=== PATIENT | male | born 1965 | race Caucasian/White ===

== ENCOUNTER → 2022-04-05 | Outpatient (CLI) | payer BC | LOC: M RAD 06:41 | PROVIDERS: ATTEND Registered Nurse | DX: Z12.2 Encounter for screening for malignant neoplasm of respiratory organs (principal); F17.200 Nicotine dependence, unspecified, uncomplicated ==

== ENCOUNTER 2023-07-26 00:33 | Inpatient (IN) | payer BC ==
[2023-07-26] VITALS (29 sets, daily range): BP systolic 102–152; BP diastolic 57–90; TEMP 97.3–97.9; O2SAT 94–98
[~2023-07-26] VITALS: Ht 193 cm; Wt 176.8 kg
[2023-07-26] MEDS ORDERED: methylPREDNISolone 125MG 2ML VIAL IV ONE (00:50)
[2023-07-26] MEDS ORDERED: NS 1,000 ML IV ONE (00:55)
[2023-07-26 01:10] LABS: ABG BASE EXCESS -2.5 (-2.0-2.0); ABG PARTIAL PRESSURE CO2 37.4 mmHg (35.0-45.0); ABG PARTIAL PRESSURE O2 195.5 mmHg (75.0-100.0); ABG STANDARD HCO3 22.4 MMOL/L. (22.0-26.0); ABG TOTAL CO2 23.1 MMOL/L (22.0-29.0); ABG pH (ARTERIAL) 7.387 UNITS (7.350-7.450)
[2023-07-26 01:17] LABS: BASO # 0.1 10^3/uL (0.0-0.2); BASO % 0.5 % (0.0-1.0); HEMATOCRIT 44.1 % (42.0-52.0); HEMOGLOBIN 15.6 g/dl (13.5-17.5); LYMPH # 1.8 10^3/uL (1.5-5.0); LYMPH % 7.1 % (24.0-44.0); MEAN CORPUSCULAR HEMOGLOBIN 32.8 pg (27.0-33.0); MEAN CORPUSCULAR HGB CONC 35.4 g/dl (32.0-36.5); MEAN CORPUSCULAR VOLUME 92.6 fl (80.0-96.0); MONO % 9.5 % (2.0-8.0); NEUTROPHILS # 21.2 10^3/uL (1.5-8.5); PLATELET COUNT, AUTOMATED 211 10^3/uL (150-450); RED BLOOD COUNT 4.76 10^6/uL (4.30-6.10); WHITE BLOOD COUNT 25.9 10^3/uL (4.0-10.0)
[2023-07-26] MEDS ORDERED: PRIL20TA2 PO (01:17)
[2023-07-26] MEDS ORDERED: SPIR-10 PO (01:19)
[2023-07-26] MEDS ORDERED: LEVO150T7 PO (01:19)
[2023-07-26] MEDS ORDERED: ECOT81TA5 PO (01:19)
[2023-07-26] MEDS ORDERED: FURO20TA2 PO (01:19)
[2023-07-26] MEDS ORDERED: ATOR40TA75 PO (01:19)
[2023-07-26 01:40] LABS: ALKALINE PHOSPHATASE 107 U/L (46-116); ALT/SGPT 24 U/L (7.0-40); AST/SGOT 25 U/L (<34); BILIRUBIN,DIRECT 0.5 MG/DL (<0.4); BILIRUBIN,TOTAL 0.9 MG/DL (0.3-1.2); BLOOD UREA NITROGEN 16 MG/DL (9-23); CALCIUM LEVEL 7.3 MG/DL (8.5-10.1); CARBON DIOXIDE LEVEL 24 MMOL/L (20-31); CHLORIDE LEVEL 103 MMOL/L (98-107); CK-MB VALUE MASS 2.3 NG/ML (<3.6); CPK CREATINE PHOSPHOKINASE 390 U/L (46-171); GLOMERULAR FILTRATION RATE > 60.0 (>56); GLUCOSE, FASTING 134 MG/DL (60-100); MB/CK RELATIVE INDEX 0.58 (< OR =4); POTASSIUM SERUM 3.1 MMOL/L (3.5-5.1); SODIUM LEVEL 134 MMOL/L (136-145); TOTAL PROTEIN 7.6 G/DL (5.7-8.2)
[2023-07-26] MEDS ORDERED: ISOVUE-370 76% 100ML VIAL As Ordered ONE (01:57)
[2023-07-26 01:59] LABS: MONO # 2.5 10^3/uL (0.0-0.8)
[2023-07-26 02:15] LABS: FREE T4 0.84 NG/DL (0.89-1.76)
[2023-07-26 02:16] LABS: THYROID STIMULATING HORMONE 3.169 uIU/ML (0.55-4.78)
[2023-07-26 02:44] LABS: CK-MB VALUE MASS 2.3 NG/ML (<3.6)
[2023-07-26 02:45] LABS: MB/CK RELATIVE INDEX 0.57 (< OR =4)
[2023-07-26] MEDS ORDERED: EPINEPHrine INJ 1 MG/ML 1ML AMP IM STA (04:25)
[2023-07-26] MEDS ORDERED: cefTRIAXone SOD 2 GM in D5W MINI-BAG PLUS 50 ML IV ONE (05:00)
[2023-07-26] MEDS ORDERED: PROPOFOL 1,000 MG/100 ML VIAL As Ordered ONE (05:08)
[2023-07-26] MEDS ORDERED: ETOMIDATE INJ 20MG/10ML VIAL As Ordered ONE (05:09)
[2023-07-26] MEDS ORDERED: ROCURONIUM BROMIDE 50MG/5ML VIAL IV ONE (05:10)
[2023-07-26] MEDS ORDERED: propofoL 1,000 MG in IV 1 EA IV SCH (05:10)
[2023-07-26] MEDS ORDERED: ETOMIDATE INJ 20MG/10ML VIAL IV ONE (05:10)
[2023-07-26 05:35] LABS: ABG BASE EXCESS -5.6 (-2.0-2.0); ABG PARTIAL PRESSURE CO2 44.8 mmHg (35.0-45.0); ABG PARTIAL PRESSURE O2 129.3 mmHg (75.0-100.0); ABG TOTAL CO2 22.4 MMOL/L (22.0-29.0); ABG pH (ARTERIAL) 7.289 UNITS (7.350-7.450)
[2023-07-26 05:48] LABS: ERYTHROCYTE SEDIMENTATION RATE 90 mm/hr (0-20)
[2023-07-26 05:53] LABS: COMPLEMENT C4 37.3 MG/DL (12-36)
[2023-07-26] MEDS ORDERED: LR 1,000 ML IV SCH (06:10)
[2023-07-26] MEDS ORDERED: MORPHINE 2 MG/ML 1ML VIAL IV PRN (07:10)
[2023-07-26] MEDS ORDERED: FURO40TA2 PO (07:24)
[2023-07-26] MEDS ORDERED: VENL150C43 PO (07:24)
[2023-07-26] MEDS ORDERED: HOME MED LIST COMPLETE! XX SCH (07:25)
[2023-07-26] MEDS: propofoL 1,000 MG in IV 1 EA IV SCH ×11 (07:30→22:52)
[2023-07-26] MEDS: methylPREDNISolone 125MG 2ML VIAL IV SCH ×4 (07:35→23:41)
[2023-07-26] MEDS: IPRATROPIUM 0.5MG/ALBUTEROL 2.5MG INH SOL UD 3ML (DUONEB) NEB SCH ×4 (08:34→19:14)
[2023-07-26] MEDS ORDERED: PANTOPRAZOLE 40MG VIAL IV SCH (09:00)
[2023-07-26] MEDS: LEVOTHYROXINE 75MCG TABLET (0.075MG) PO SCH (09:02)
[2023-07-26] MEDS: ENOXAPARIN 40MG/0.4ML SYRINGE (J1650 PER 10MG) SC SCH ×2 (09:02→20:51)
[2023-07-26] MEDS: KCL 10MEQ/100ML SWI (KRUN) 10 MEQ in IV 1 EA IV SCH ×3 (09:02→11:15)
[2023-07-26] MEDS: FAMOTIDINE 20 MG TAB PO SCH (09:02)
[2023-07-26] MEDS: LEVOTHYROXINE 100MCG TABLET (0.1MG) PO SCH (09:02)
[2023-07-26 09:13] LABS: PROCALCITONIN 0.12 ng/ml
[2023-07-26] MEDS: MICONAZOLE 2 % POWDER (DESENEX) TOP SCH ×2 (09:46→20:56)
[2023-07-26] MEDS: METOCLOPRAMIDE INJ 10MG/2ML VIAL IV SCH ×2 (16:45→23:41)
[2023-07-26] MEDS: MIDAZOLAM INJ 2MG/2ML VIAL IV PRN (22:07)
[2023-07-27] VITALS (77 sets, daily range): BP systolic 96–141; BP diastolic 53–72; TEMP 97.1–98.1; O2SAT 89–100
[2023-07-27] MEDS ORDERED: UNRESOLVED CLARIFICATION ENTRY XX SCH (00:01)
[2023-07-27] MEDS: propofoL 1,000 MG in IV 1 EA IV SCH ×9 (00:13→12:18)
[2023-07-27] MEDS: cefTRIAXone SOD 2 GM in D5W MINI-BAG PLUS 50 ML IV SCH (04:11)
[2023-07-27] MEDS: MIDAZOLAM INJ 2MG/2ML VIAL IV PRN (04:28)
[2023-07-27 05:27] LABS: HEMATOCRIT 39.4 % (42.0-52.0); HEMOGLOBIN 13.9 g/dl (13.5-17.5); MEAN CORPUSCULAR HEMOGLOBIN 32.8 pg (27.0-33.0); MEAN CORPUSCULAR HGB CONC 35.3 g/dl (32.0-36.5); MEAN CORPUSCULAR VOLUME 92.9 fl (80.0-96.0); PLATELET COUNT, AUTOMATED 205 10^3/uL (150-450); RED BLOOD COUNT 4.24 10^6/uL (4.30-6.10); WHITE BLOOD COUNT 22.5 10^3/uL (4.0-10.0)
[2023-07-27] MEDS: LEVOTHYROXINE 75MCG TABLET (0.075MG) PO SCH (05:37)
[2023-07-27] MEDS: methylPREDNISolone 125MG 2ML VIAL IV SCH ×2 (05:37→17:57)
[2023-07-27] MEDS: LEVOTHYROXINE 100MCG TABLET (0.1MG) PO SCH (05:37)
[2023-07-27 05:51] LABS: ALBUMIN 2.4 G/DL (3.2-5.2); BLOOD UREA NITROGEN 22 MG/DL (9-23); CALCIUM LEVEL 7.4 MG/DL (8.5-10.1); CARBON DIOXIDE LEVEL 25 MMOL/L (20-31); CHLORIDE LEVEL 104 MMOL/L (98-107); CREATININE FOR GFR 0.75 MG/DL (0.70-1.30); GLOMERULAR FILTRATION RATE > 60.0 (>56); GLUCOSE, FASTING 204 MG/DL (60-100); PHOSPHORUS LEVEL 2.6 MG/DL (2.5-4.9); POTASSIUM SERUM 3.3 MMOL/L (3.5-5.1); SODIUM LEVEL 134 MMOL/L (136-145)
[2023-07-27 06:04] LABS: ABG BASE EXCESS -0.9 (-2.0-2.0); ABG O2 SATURATION 94.6 % (95.0-99.0); ABG PARTIAL PRESSURE CO2 40.9 mmHg (35.0-45.0); ABG PARTIAL PRESSURE O2 72.6 mmHg (75.0-100.0); ABG STANDARD HCO3 23.7 MMOL/L. (22.0-26.0); ABG TOTAL CO2 25.3 MMOL/L (22.0-29.0); ABG pH (ARTERIAL) 7.387 UNITS (7.350-7.450)
[2023-07-27] MEDS ORDERED: KCL 10MEQ/100ML SWI (KRUN) 10 MEQ in IV 1 EA IV ONE (07:00)
[2023-07-27] MEDS: IPRATROPIUM 0.5MG/ALBUTEROL 2.5MG INH SOL UD 3ML (DUONEB) NEB SCH ×4 (07:07→20:04)
[2023-07-27] MEDS: METOCLOPRAMIDE INJ 10MG/2ML VIAL IV SCH (08:46)
[2023-07-27] MEDS: ENOXAPARIN 40MG/0.4ML SYRINGE (J1650 PER 10MG) SC SCH ×2 (08:46→20:48)
[2023-07-27] MEDS: FAMOTIDINE 20 MG TAB PO SCH (08:47)
[2023-07-27] MEDS: FLUTICASONE PROP 0.05% NASAL SPRAY 16 GM (FLONASE) NARES SCH (08:47)
[2023-07-27] MEDS: MICONAZOLE 2 % POWDER (DESENEX) TOP SCH ×2 (08:48→20:48)
[2023-07-27] MEDS ORDERED: AZITHROMYCIN INJ 500 MG, VIAL MATE ADAPTER 1 EACH in NS 250 ML IV SCH (09:00)
[2023-07-27] MEDS ORDERED: DOXYCYCLINE HYCLATE 100 MG in D5W MINI-BAG PLUS 100 ML IV SCH (10:00)
[2023-07-27] MEDS: KCL 10MEQ/100ML SWI (KRUN) 10 MEQ in IV 1 EA IV SCH ×2 (10:36→11:50)
[2023-07-27] MEDS: dexmedeTOMidine 200 MCG in IV 1 EA IV SCH ×2 (10:47→12:49)
[2023-07-27] MEDS: DOXYCYCLINE HYCLATE 100MG TABLET PO SCH (20:46)
[2023-07-28] VITALS (15 sets, daily range): BP systolic 123–139; BP diastolic 67–89; TEMP 97.2–99.8; O2SAT 90–99
[2023-07-28] MEDS: LEVOTHYROXINE 100MCG TABLET (0.1MG) PO SCH (05:06)
[2023-07-28] MEDS: LEVOTHYROXINE 75MCG TABLET (0.075MG) PO SCH (05:07)
[2023-07-28] MEDS: methylPREDNISolone 125MG 2ML VIAL IV SCH (05:10)
[2023-07-28] MEDS: cefTRIAXone SOD 2 GM in D5W MINI-BAG PLUS 50 ML IV SCH (05:10)
[2023-07-28 05:33] LABS: HEMATOCRIT 41.4 % (42.0-52.0); HEMOGLOBIN 14.4 g/dl (13.5-17.5); MEAN CORPUSCULAR HEMOGLOBIN 31.6 pg (27.0-33.0); MEAN CORPUSCULAR HGB CONC 34.8 g/dl (32.0-36.5); PLATELET COUNT, AUTOMATED 186 10^3/uL (150-450); RED BLOOD COUNT 4.55 10^6/uL (4.30-6.10); WHITE BLOOD COUNT 23.4 10^3/uL (4.0-10.0)
[2023-07-28 06:04] LABS: ALBUMIN 2.4 G/DL (3.2-5.2); BLOOD UREA NITROGEN 23 MG/DL (9-23); CALCIUM LEVEL 7.6 MG/DL (8.5-10.1); CARBON DIOXIDE LEVEL 29 MMOL/L (20-31); CHLORIDE LEVEL 105 MMOL/L (98-107); CREATININE FOR GFR 0.69 MG/DL (0.70-1.30); GLOMERULAR FILTRATION RATE > 60.0 (>56); GLUCOSE, FASTING 135 MG/DL (60-100); PHOSPHORUS LEVEL 2.8 MG/DL (2.5-4.9); SODIUM LEVEL 138 MMOL/L (136-145)
[2023-07-28] MEDS: IPRATROPIUM 0.5MG/ALBUTEROL 2.5MG INH SOL UD 3ML (DUONEB) NEB SCH ×4 (07:31→19:11)
[2023-07-28] MEDS: MICONAZOLE 2 % POWDER (DESENEX) TOP SCH ×2 (08:34→20:25)
[2023-07-28] MEDS: DOXYCYCLINE HYCLATE 100MG TABLET PO SCH ×2 (08:35→20:25)
[2023-07-28] MEDS: FLUTICASONE PROP 0.05% NASAL SPRAY 16 GM (FLONASE) NARES SCH (08:35)
[2023-07-28] MEDS: FAMOTIDINE 20 MG TAB PO SCH (08:35)
[2023-07-28] MEDS: ENOXAPARIN 40MG/0.4ML SYRINGE (J1650 PER 10MG) SC SCH ×2 (08:35→20:25)
[2023-07-28] MEDS ORDERED: ISOVUE-370 76% 100ML VIAL As Ordered ONE (09:17)
[2023-07-28] MEDS ORDERED: FUROSEMIDE 40MG/4ML VIAL IV ONE (14:20)
[2023-07-28] MEDS: FAMOTIDINE IV BAG 20 MG in IV 1 EA IV SCH (20:25)
[2023-07-29] VITALS (10 sets, daily range): BP systolic 125–136; BP diastolic 62–80; TEMP 97–100.1; O2SAT 88–95
[2023-07-29] MEDS: cefTRIAXone SOD 2 GM in D5W MINI-BAG PLUS 50 ML IV SCH (04:21)
[2023-07-29] MEDS: LEVOTHYROXINE 75MCG TABLET (0.075MG) PO SCH (05:03)
[2023-07-29] MEDS: LEVOTHYROXINE 100MCG TABLET (0.1MG) PO SCH (05:03)
[2023-07-29 05:45] LABS: HEMOGLOBIN 15.2 g/dl (13.5-17.5); MEAN CORPUSCULAR HEMOGLOBIN 32.1 pg (27.0-33.0); MEAN CORPUSCULAR HGB CONC 34.5 g/dl (32.0-36.5); MEAN CORPUSCULAR VOLUME 92.8 fl (80.0-96.0); PLATELET COUNT, AUTOMATED 253 10^3/uL (150-450); RED BLOOD COUNT 4.74 10^6/uL (4.30-6.10); WHITE BLOOD COUNT 26.3 10^3/uL (4.0-10.0)
[2023-07-29 06:06] LABS: BLOOD UREA NITROGEN 19 MG/DL (9-23); CALCIUM LEVEL 7.8 MG/DL (8.5-10.1); CARBON DIOXIDE LEVEL 27 MMOL/L (20-31); CHLORIDE LEVEL 105 MMOL/L (98-107); CREATININE FOR GFR 0.73 MG/DL (0.70-1.30); GLOMERULAR FILTRATION RATE > 60.0 (>56); GLUCOSE, FASTING 106 MG/DL (60-100); MAGNESIUM LEVEL 2.2 MG/DL (1.8-2.4); POTASSIUM SERUM 3.2 MMOL/L (3.5-5.1); SODIUM LEVEL 141 MMOL/L (136-145)
[2023-07-29 06:20] LABS: ANISOCYTOSIS 1+; LYMPHOCYTES 15 % (16-44); MICROCYTOSIS 1+; MONOCYTES 11 % (0-5); NEUTROPHILS 74 % (28-66); PLATELET ESTIMATE NORMAL (NORMAL)
[2023-07-29] MEDS ORDERED: POTASSIUM CHLORIDE 10% LIQ 20MEQ/15ML UDC PO ONE ×2 (07:00→11:05)
[2023-07-29] MEDS: IPRATROPIUM 0.5MG/ALBUTEROL 2.5MG INH SOL UD 3ML (DUONEB) NEB SCH ×4 (08:17→19:49)
[2023-07-29] MEDS ORDERED: FAMOTIDINE 20 MG TAB PO SCH (09:00)
[2023-07-29] MEDS: DOXYCYCLINE HYCLATE 100MG TABLET PO SCH ×2 (09:12→20:42)
[2023-07-29] MEDS: ENOXAPARIN 40MG/0.4ML SYRINGE (J1650 PER 10MG) SC SCH (09:12)
[2023-07-29] MEDS: FLUTICASONE PROP 0.05% NASAL SPRAY 16 GM (FLONASE) NARES SCH (09:12)
[2023-07-29] MEDS: MICONAZOLE 2 % POWDER (DESENEX) TOP SCH ×2 (09:12→20:42)
[2023-07-29] MEDS: FAMOTIDINE IV BAG 20 MG in IV 1 EA IV SCH ×2 (09:12→20:42)
[2023-07-29] MEDS ORDERED: ISOVUE-370 76% 100ML VIAL As Ordered ONE (09:56)
[2023-07-29] MEDS ORDERED: FUROSEMIDE 40MG/4ML VIAL IV ONE ×2 (11:00→18:00)
[2023-07-29] MEDS ORDERED: POTASSIUM CHLORIDE 10MEQ SR TABLET PO ONE ×2 (12:00→18:00)
[2023-07-29 17:57] LABS: BLOOD UREA NITROGEN 15 MG/DL (9-23); CALCIUM LEVEL 7.8 MG/DL (8.5-10.1); CARBON DIOXIDE LEVEL 30 MMOL/L (20-31); CHLORIDE LEVEL 107 MMOL/L (98-107); CREATININE FOR GFR 0.72 MG/DL (0.70-1.30); GLOMERULAR FILTRATION RATE > 60.0 (>56); GLUCOSE, FASTING 121 MG/DL (60-100); POTASSIUM SERUM 3.8 MMOL/L (3.5-5.1); SODIUM LEVEL 142 MMOL/L (136-145)
[2023-07-29] MEDS: AMPICILLIN SOD/SULBACTAM SOD 3 GM in D5W MINI-BAG PLUS 100 ML IV SCH (18:18)
[2023-07-29 23:24] LABS: ABG BASE EXCESS 5.1 (-2.0-2.0); ABG HCO3 29.8 MMOL/L (22.0-26.0); ABG O2 SATURATION 86.6 % (95.0-99.0); ABG PARTIAL PRESSURE CO2 43.5 mmHg (35.0-45.0); ABG STANDARD HCO3 28.8 MMOL/L. (22.0-26.0); ABG TOTAL CO2 31.1 MMOL/L (22.0-29.0); ABG pH (ARTERIAL) 7.453 UNITS (7.350-7.450)
[2023-07-29 23:27] LABS: ABG PARTIAL PRESSURE O2 49.6 mmHg (75.0-100.0)
[2023-07-30] VITALS (32 sets, daily range): BP systolic 97–150; BP diastolic 55–87; TEMP 96.9–99.1; O2SAT 90–97
[2023-07-30] MEDS ORDERED: PROPOFOL 1,000 MG/100 ML VIAL As Ordered ONE (00:01)
[2023-07-30] MEDS ORDERED: MIDAZOLAM INJ 2MG/2ML VIAL As Ordered ONE (00:02)
[2023-07-30] MEDS: MIDAZOLAM 100MG/100ML-0.9%NACL 100 MG in IV 1 EA IV SCH (00:23)
[2023-07-30] MEDS: propofoL 1,000 MG in IV 1 EA IV SCH ×12 (00:24→21:52)
[2023-07-30] MEDS: AMPICILLIN SOD/SULBACTAM SOD 3 GM in D5W MINI-BAG PLUS 100 ML IV SCH ×5 (00:38→23:54)
[2023-07-30] MEDS ORDERED: FUROSEMIDE 40MG/4ML VIAL IV ONE (01:00)
[2023-07-30] MEDS ORDERED: MIDAZOLAM INJ 2MG/2ML VIAL IV ONE (01:00)
[2023-07-30 01:22] LABS: ABG BASE EXCESS -1.1 (-2.0-2.0); ABG HCO3 23.9 MMOL/L (22.0-26.0); ABG O2 SATURATION 97.4 % (95.0-99.0); ABG PARTIAL PRESSURE CO2 41.4 mmHg (35.0-45.0); ABG PARTIAL PRESSURE O2 106.6 mmHg (75.0-100.0); ABG STANDARD HCO3 23.5 MMOL/L. (22.0-26.0); ABG TOTAL CO2 25.2 MMOL/L (22.0-29.0)
[2023-07-30 04:58] LABS: HEMATOCRIT 41.8 % (42.0-52.0); HEMOGLOBIN 14.4 g/dl (13.5-17.5); MEAN CORPUSCULAR HGB CONC 34.4 g/dl (32.0-36.5); MEAN CORPUSCULAR VOLUME 95.7 fl (80.0-96.0); PLATELET COUNT, AUTOMATED 253 10^3/uL (150-450); RED BLOOD COUNT 4.37 10^6/uL (4.30-6.10); WHITE BLOOD COUNT 21.5 10^3/uL (4.0-10.0)
[2023-07-30 05:30] LABS: BLOOD UREA NITROGEN 18 MG/DL (9-23); CALCIUM LEVEL 7.6 MG/DL (8.5-10.1); CARBON DIOXIDE LEVEL 31 MMOL/L (20-31); CHLORIDE LEVEL 108 MMOL/L (98-107); GLOMERULAR FILTRATION RATE > 60.0 (>56); GLUCOSE, FASTING 102 MG/DL (60-100); MAGNESIUM LEVEL 2.2 MG/DL (1.8-2.4); POTASSIUM SERUM 3.5 MMOL/L (3.5-5.1); SODIUM LEVEL 145 MMOL/L (136-145)
[2023-07-30 05:41] LABS: ATYPICAL LYMPH 1 % (0-5); LYMPHOCYTES 12 % (16-44); METAMYELOCYTES 2 % (0-0); MONOCYTES 8 % (0-5); NEUTROPHILS 71 % (28-66)
[2023-07-30 05:42] LABS: PLATELET ESTIMATE NORMAL (NORMAL)
[2023-07-30] MEDS: LEVOTHYROXINE 75MCG TABLET (0.075MG) PO SCH (06:01)
[2023-07-30] MEDS: LEVOTHYROXINE 100MCG TABLET (0.1MG) PO SCH (06:01)
[2023-07-30] MEDS: IPRATROPIUM 0.5MG/ALBUTEROL 2.5MG INH SOL UD 3ML (DUONEB) NEB SCH ×4 (07:15→19:51)
[2023-07-30] MEDS ORDERED: MIDAZOLAM 100MG/100ML-0.9%NACL 100 MG in IV 1 EA IV SCH (08:50)
[2023-07-30] MEDS ORDERED: PANTOPRAZOLE 40MG VIAL IV SCH (09:00)
[2023-07-30] MEDS: FLUTICASONE PROP 0.05% NASAL SPRAY 16 GM (FLONASE) NARES SCH (09:23)
[2023-07-30] MEDS: MICONAZOLE 2 % POWDER (DESENEX) TOP SCH ×2 (09:24→20:10)
[2023-07-30] MEDS: FAMOTIDINE IV BAG 20 MG in IV 1 EA IV SCH ×2 (09:28→20:10)
[2023-07-30] MEDS: DOXYCYCLINE HYCLATE 100MG TABLET PO SCH ×2 (09:29→20:10)
[2023-07-30 10:09] LABS: ABG BASE EXCESS 6.5 (-2.0-2.0); ABG HCO3 31.6 MMOL/L (22.0-26.0); ABG O2 SATURATION 90.7 % (95.0-99.0); ABG PARTIAL PRESSURE CO2 46.7 mmHg (35.0-45.0); ABG PARTIAL PRESSURE O2 55.9 mmHg (75.0-100.0); ABG STANDARD HCO3 30.1 MMOL/L. (22.0-26.0); ABG pH (ARTERIAL) 7.448 UNITS (7.350-7.450)
[2023-07-30] MEDS: ENOXAPARIN 40MG/0.4ML SYRINGE (J1650 PER 10MG) SC SCH ×2 (11:58→20:10)
[2023-07-31] VITALS (29 sets, daily range): BP systolic 104–132; BP diastolic 56–81; TEMP 97.2–98.6; O2SAT 89–97
[2023-07-31] MEDS: propofoL 1,000 MG in IV 1 EA IV SCH ×11 (00:58→23:06)
[2023-07-31] MEDS: MIDAZOLAM INJ 2MG/2ML VIAL IV PRN ×2 (04:00→11:21)
[2023-07-31 05:20] LABS: HEMATOCRIT 41.6 % (42.0-52.0); HEMOGLOBIN 14.4 g/dl (13.5-17.5); MEAN CORPUSCULAR HGB CONC 34.6 g/dl (32.0-36.5); MEAN CORPUSCULAR VOLUME 95.2 fl (80.0-96.0); PLATELET COUNT, AUTOMATED 279 10^3/uL (150-450); RED BLOOD COUNT 4.37 10^6/uL (4.30-6.10); WHITE BLOOD COUNT 20.2 10^3/uL (4.0-10.0)
[2023-07-31 05:40] LABS: BLOOD UREA NITROGEN 18 MG/DL (9-23); CALCIUM LEVEL 7.5 MG/DL (8.5-10.1); CARBON DIOXIDE LEVEL 31 MMOL/L (20-31); CHLORIDE LEVEL 104 MMOL/L (98-107); CREATININE FOR GFR 0.78 MG/DL (0.70-1.30); GLOMERULAR FILTRATION RATE > 60.0 (>56); GLUCOSE, FASTING 75 MG/DL (60-100); MAGNESIUM LEVEL 2.3 MG/DL (1.8-2.4); POTASSIUM SERUM 3.7 MMOL/L (3.5-5.1); SODIUM LEVEL 142 MMOL/L (136-145)
[2023-07-31] MEDS: AMPICILLIN SOD/SULBACTAM SOD 3 GM in D5W MINI-BAG PLUS 100 ML IV SCH ×3 (05:43→17:00)
[2023-07-31] MEDS: LEVOTHYROXINE 100MCG TABLET (0.1MG) PO SCH (05:43)
[2023-07-31] MEDS: LEVOTHYROXINE 75MCG TABLET (0.075MG) PO SCH (05:44)
[2023-07-31] MEDS: MIDAZOLAM 100MG/100ML-0.9%NACL 100 MG in IV 1 EA IV SCH (06:06)
[2023-07-31 06:52] LABS: ATYPICAL LYMPH 6 % (0-5); BASOPHILS 1 % (0-1); EOSINOPHILS 2 % (0-3); LYMPHOCYTES 16 % (16-44); METAMYELOCYTES 2 % (0-0); MONOCYTES 2 % (0-5); MYELOCYTES 1 % (0-0); NEUTROPHILS 63 % (28-66)
[2023-07-31 06:54] LABS: PLATELET ESTIMATE NORMAL (NORMAL)
[2023-07-31] MEDS: IPRATROPIUM 0.5MG/ALBUTEROL 2.5MG INH SOL UD 3ML (DUONEB) NEB SCH ×4 (07:23→19:16)
[2023-07-31] MEDS: FLUTICASONE PROP 0.05% NASAL SPRAY 16 GM (FLONASE) NARES SCH (08:42)
[2023-07-31] MEDS: DOXYCYCLINE HYCLATE 100MG TABLET PO SCH ×2 (08:43→21:00)
[2023-07-31] MEDS: MICONAZOLE 2 % POWDER (DESENEX) TOP SCH ×2 (08:43→21:00)
[2023-07-31] MEDS: ENOXAPARIN 40MG/0.4ML SYRINGE (J1650 PER 10MG) SC SCH (08:44)
[2023-07-31] MEDS: FAMOTIDINE IV BAG 20 MG in IV 1 EA IV SCH ×2 (08:44→21:00)
[2023-07-31 10:03] LABS: VENOUS BASE EXCESS 2.2 (-2.0-2.0); VENOUS HCO3 25.9 MMOL/L (23.0-27.0); VENOUS O2 SATURATION 98.6 % (60.0-80.0); VENOUS PARTIAL PRESSURE CO2 37.2 mmHg (38.0-50.0); VENOUS PARTIAL PRESSURE O2 140.2 mmHg (30.0-50.0); VENOUS STANDARD HCO3 26.5 MMOL/L
[2023-07-31 10:06] LABS: ALBUMIN 2.1 G/DL (3.2-5.2); ALKALINE PHOSPHATASE 91 U/L (46-116); ALT/SGPT 28 U/L (7.0-40); AST/SGOT 46 U/L (<34); BILIRUBIN,DIRECT 0.4 MG/DL (<0.4); BILIRUBIN,TOTAL 0.7 MG/DL (0.3-1.2); TOTAL PROTEIN 6.6 G/DL (5.7-8.2)
[2023-07-31] MEDS ORDERED: LIDOCAINE 1% MDV 20ML VIAL As Ordered ONE (11:12)
[2023-07-31] MEDS ORDERED: LIDOCAINE 1% MDV 20ML VIAL XX ONE (11:15)
[2023-07-31] MEDS ORDERED: ISOVUE-370 76% 100ML VIAL As Ordered ONE (13:33)
[2023-07-31] MEDS ORDERED: D5W/0.45% SODIUM CHLORIDE 1,000 ML IV SCH (17:25)
[2023-08-01] VITALS (30 sets, daily range): BP systolic 110–147; BP diastolic 62–84; TEMP 97.6–99.2; O2SAT 91–99
[2023-08-01] MEDS: AMPICILLIN SOD/SULBACTAM SOD 3 GM in D5W MINI-BAG PLUS 100 ML IV SCH ×4 (00:02→17:11)
[2023-08-01] MEDS: propofoL 1,000 MG in IV 1 EA IV SCH ×9 (01:26→21:55)
[2023-08-01] MEDS: LEVOTHYROXINE 75MCG TABLET (0.075MG) PO SCH (05:10)
[2023-08-01] MEDS: LEVOTHYROXINE 100MCG TABLET (0.1MG) PO SCH (05:10)
[2023-08-01] MEDS: MIDAZOLAM INJ 2MG/2ML VIAL IV PRN ×2 (05:32→12:58)
[2023-08-01 06:30] LABS: HEMOGLOBIN 13.7 g/dl (13.5-17.5); MEAN CORPUSCULAR HEMOGLOBIN 32.5 pg (27.0-33.0); MEAN CORPUSCULAR HGB CONC 33.4 g/dl (32.0-36.5); MEAN CORPUSCULAR VOLUME 97.4 fl (80.0-96.0); PLATELET COUNT, AUTOMATED 262 10^3/uL (150-450); RED BLOOD COUNT 4.21 10^6/uL (4.30-6.10); WHITE BLOOD COUNT 17.6 10^3/uL (4.0-10.0)
[2023-08-01 06:54] LABS: BLOOD UREA NITROGEN 17 MG/DL (9-23); CALCIUM LEVEL 7.2 MG/DL (8.5-10.1); CARBON DIOXIDE LEVEL 33 MMOL/L (20-31); CHLORIDE LEVEL 105 MMOL/L (98-107); CREATININE FOR GFR 0.85 MG/DL (0.70-1.30); GLOMERULAR FILTRATION RATE > 60.0 (>56); GLUCOSE, FASTING 99 MG/DL (60-100); MAGNESIUM LEVEL 2.4 MG/DL (1.8-2.4); POTASSIUM SERUM 3.6 MMOL/L (3.5-5.1); SODIUM LEVEL 141 MMOL/L (136-145)
[2023-08-01 07:13] LABS: ATYPICAL LYMPH 2 % (0-5); EOSINOPHILS 3 % (0-3); LYMPHOCYTES 14 % (16-44); METAMYELOCYTES 7 % (0-0); MONOCYTES 5 % (0-5); MYELOCYTES 2 % (0-0); NEUTROPHILS 64 % (28-66)
[2023-08-01 07:14] LABS: PLATELET ESTIMATE NORMAL (NORMAL)
[2023-08-01] MEDS: IPRATROPIUM 0.5MG/ALBUTEROL 2.5MG INH SOL UD 3ML (DUONEB) NEB SCH ×4 (07:46→19:03)
[2023-08-01] MEDS: FAMOTIDINE IV BAG 20 MG in IV 1 EA IV SCH ×2 (08:42→20:18)
[2023-08-01] MEDS: MICONAZOLE 2 % POWDER (DESENEX) TOP SCH ×2 (08:42→20:19)
[2023-08-01] MEDS: FLUTICASONE PROP 0.05% NASAL SPRAY 16 GM (FLONASE) NARES SCH (08:44)
[2023-08-01] MEDS ORDERED: fentaNYL 100 MCG/2 ML INJECTION IV ONE (12:30)
[2023-08-01] MEDS: MIDAZOLAM 100MG/100ML-0.9%NACL 100 MG in IV 1 EA IV SCH (15:06)
[2023-08-01] MEDS: OXYMETAZOLINE 0.05% NASAL SPRAY (AFRIN) SCH (20:19)
[2023-08-02] VITALS (34 sets, daily range): BP systolic 109–163; BP diastolic 60–84; TEMP 98.3–101.2; O2SAT 89–95
[2023-08-02] MEDS: AMPICILLIN SOD/SULBACTAM SOD 3 GM in D5W MINI-BAG PLUS 100 ML IV SCH ×4 (00:09→18:11)
[2023-08-02] MEDS: propofoL 1,000 MG in IV 1 EA IV SCH ×6 (00:10→12:11)
[2023-08-02] MEDS: MIDAZOLAM INJ 2MG/2ML VIAL IV PRN ×4 (04:27→21:21)
[2023-08-02 04:42] LABS: HEMATOCRIT 41.4 % (42.0-52.0); MEAN CORPUSCULAR HEMOGLOBIN 32.3 pg (27.0-33.0); MEAN CORPUSCULAR HGB CONC 33.8 g/dl (32.0-36.5); MEAN CORPUSCULAR VOLUME 95.4 fl (80.0-96.0); PLATELET COUNT, AUTOMATED 227 10^3/uL (150-450); RED BLOOD COUNT 4.34 10^6/uL (4.30-6.10); WHITE BLOOD COUNT 23.2 10^3/uL (4.0-10.0)
[2023-08-02 05:04] LABS: ATYPICAL LYMPH 2 % (0-5); EOSINOPHILS 4 % (0-3); LYMPHOCYTES 16 % (16-44); METAMYELOCYTES 5 % (0-0); MONOCYTES 8 % (0-5); MYELOCYTES 1 % (0-0); NEUTROPHILS 62 % (28-66)
[2023-08-02 05:05] LABS: BLOOD UREA NITROGEN 16 MG/DL (9-23); CALCIUM LEVEL 7.4 MG/DL (8.5-10.1); CARBON DIOXIDE LEVEL 30 MMOL/L (20-31); CHLORIDE LEVEL 101 MMOL/L (98-107); CREATININE FOR GFR 0.62 MG/DL (0.70-1.30); GLOMERULAR FILTRATION RATE > 60.0 (>56); GLUCOSE, FASTING 120 MG/DL (60-100); MAGNESIUM LEVEL 2.2 MG/DL (1.8-2.4); PLATELET ESTIMATE NORMAL (NORMAL); POTASSIUM SERUM 3.4 MMOL/L (3.5-5.1); SMUDGE CELLS 1+; SODIUM LEVEL 137 MMOL/L (136-145)
[2023-08-02 05:19] LABS: ERYTHROCYTE SEDIMENTATION RATE 89 mm/hr (0-20)
[2023-08-02] MEDS: LEVOTHYROXINE 75MCG TABLET (0.075MG) PO SCH (06:12)
[2023-08-02] MEDS: LEVOTHYROXINE 100MCG TABLET (0.1MG) PO SCH (06:12)
[2023-08-02] MEDS: IPRATROPIUM 0.5MG/ALBUTEROL 2.5MG INH SOL UD 3ML (DUONEB) NEB SCH ×4 (07:36→19:25)
[2023-08-02] MEDS ORDERED: FUROSEMIDE 40MG/4ML VIAL IV ONE (08:55)
[2023-08-02] MEDS: FAMOTIDINE IV BAG 20 MG in IV 1 EA IV SCH ×2 (09:27→20:11)
[2023-08-02] MEDS: ENOXAPARIN 40MG/0.4ML SYRINGE (J1650 PER 10MG) SC SCH ×2 (09:28→20:08)
[2023-08-02] MEDS: KCL 10MEQ/100ML SWI (KRUN) 10 MEQ in IV 1 EA IV SCH ×2 (09:28→11:16)
[2023-08-02] MEDS: MICONAZOLE 2 % POWDER (DESENEX) TOP SCH ×2 (09:29→20:14)
[2023-08-02] MEDS: OXYMETAZOLINE 0.05% NASAL SPRAY (AFRIN) SCH ×2 (09:30→20:13)
[2023-08-02] MEDS: SPIRONOLACTONE 25 MG TAB PO SCH (09:46)
[2023-08-02] MEDS ORDERED: ACETAMINOPHEN *IV* 1,000 MG in IV 1 EA IV ONE (12:35)
[2023-08-02 15:18] LABS: VENOUS BASE EXCESS 6.4 (-2.0-2.0); VENOUS HCO3 30.3 MMOL/L (23.0-27.0); VENOUS O2 SATURATION 99.1 % (60.0-80.0); VENOUS PARTIAL PRESSURE CO2 41.1 mmHg (38.0-50.0); VENOUS PARTIAL PRESSURE O2 240.9 mmHg (30.0-50.0); VENOUS PH 7.486 UNITS (7.330-7.430); VENOUS STANDARD HCO3 30.3 MMOL/L; VENOUS TOTAL CO2 31.6 MMOL/L (24.0-28.0)
[2023-08-02 15:46] LABS: BLOOD UREA NITROGEN 17 MG/DL (9-23); CALCIUM LEVEL 7.5 MG/DL (8.5-10.1); CARBON DIOXIDE LEVEL 32 MMOL/L (20-31); CHLORIDE LEVEL 101 MMOL/L (98-107); CREATININE FOR GFR 0.68 MG/DL (0.70-1.30); GLOMERULAR FILTRATION RATE > 60.0 (>56); GLUCOSE, FASTING 125 MG/DL (60-100); PHOSPHORUS LEVEL 3.7 MG/DL (2.5-4.9); POTASSIUM SERUM 3.7 MMOL/L (3.5-5.1); SODIUM LEVEL 139 MMOL/L (136-145)
[2023-08-02] MEDS: dexmedeTOMidine 200 MCG in IV 1 EA IV SCH ×3 (16:00→22:29)
[2023-08-02] MEDS ORDERED: dexmedeTOMIDine (4MCG/ML)200MCG/50ML BTL (PRECEDEX) As Ordered ONE (16:14)
[2023-08-02] MEDS: VENLAFAXINE 37.5 MG TAB FT SCH (20:08)
[2023-08-03] VITALS (33 sets, daily range): BP systolic 99–144; BP diastolic 59–83; TEMP 97.3–98.9; O2SAT 74–99
[2023-08-03] MEDS: AMPICILLIN SOD/SULBACTAM SOD 3 GM in D5W MINI-BAG PLUS 100 ML IV SCH ×5 (01:06→23:48)
[2023-08-03] MEDS: dexmedeTOMidine 200 MCG in IV 1 EA IV SCH ×2 (01:09→03:49)
[2023-08-03 04:52] LABS: HEMATOCRIT 41.6 % (42.0-52.0); HEMOGLOBIN 14.4 g/dl (13.5-17.5); MEAN CORPUSCULAR HEMOGLOBIN 32.5 pg (27.0-33.0); MEAN CORPUSCULAR HGB CONC 34.6 g/dl (32.0-36.5); MEAN CORPUSCULAR VOLUME 93.9 fl (80.0-96.0); PLATELET COUNT, AUTOMATED 213 10^3/uL (150-450); RED BLOOD COUNT 4.43 10^6/uL (4.30-6.10); WHITE BLOOD COUNT 27.9 10^3/uL (4.0-10.0)
[2023-08-03 05:05] LABS: INR 1.16; PROTHROMBIN TIME 14.5 SECONDS (12.5-14.5)
[2023-08-03 05:09] LABS: BLOOD UREA NITROGEN 19 MG/DL (9-23); CALCIUM LEVEL 7.5 MG/DL (8.5-10.1); CARBON DIOXIDE LEVEL 30 MMOL/L (20-31); CHLORIDE LEVEL 100 MMOL/L (98-107); CREATININE FOR GFR 0.69 MG/DL (0.70-1.30); GLOMERULAR FILTRATION RATE > 60.0 (>56); GLUCOSE, FASTING 139 MG/DL (60-100); MAGNESIUM LEVEL 2.1 MG/DL (1.8-2.4); POTASSIUM SERUM 3.5 MMOL/L (3.5-5.1); SODIUM LEVEL 136 MMOL/L (136-145)
[2023-08-03] MEDS: LEVOTHYROXINE 75MCG TABLET (0.075MG) PO SCH (06:08)
[2023-08-03] MEDS: LEVOTHYROXINE 100MCG TABLET (0.1MG) PO SCH (06:08)
[2023-08-03 06:13] LABS: ATYPICAL LYMPH 3 % (0-5); BASOPHILS 2 % (0-1); EOSINOPHILS 3 % (0-3); LYMPHOCYTES 12 % (16-44); MONOCYTES 8 % (0-5); NEUTROPHILS 69 % (28-66); PLATELET ESTIMATE NORMAL (NORMAL)
[2023-08-03 06:14] LABS: ANISOCYTOSIS 1+
[2023-08-03 06:33] LABS: PARTIAL THROMBOPLASTIN TIME 30.6 SECONDS (24.8-34.2)
[2023-08-03] MEDS: IPRATROPIUM 0.5MG/ALBUTEROL 2.5MG INH SOL UD 3ML (DUONEB) NEB SCH ×4 (08:06→20:26)
[2023-08-03] MEDS: VENLAFAXINE 37.5 MG TAB FT SCH ×2 (09:00→20:41)
[2023-08-03] MEDS: SPIRONOLACTONE 25 MG TAB PO SCH (09:00)
[2023-08-03] MEDS ORDERED: SODIUM CHLORIDE HYPERTONIC 3% 4ML NEB SOL INH ONE (09:05)
[2023-08-03] MEDS ORDERED: ALBUTEROL SULFATE 2.5MG/0.5ML INH NEB SOLN NEB ONE (09:05)
[2023-08-03] MEDS: FAMOTIDINE IV BAG 20 MG in IV 1 EA IV SCH ×2 (09:09→20:44)
[2023-08-03] MEDS: FUROSEMIDE 40MG/4ML VIAL IV SCH (09:10)
[2023-08-03] MEDS: MICONAZOLE 2 % POWDER (DESENEX) TOP SCH ×2 (09:10→20:41)
[2023-08-03] MEDS: ENOXAPARIN 40MG/0.4ML SYRINGE (J1650 PER 10MG) SC SCH (09:10)
[2023-08-03] MEDS: OXYMETAZOLINE 0.05% NASAL SPRAY (AFRIN) SCH ×2 (10:38→20:42)
[2023-08-03] MEDS ORDERED: ACETAMINOPHEN *IV* 1,000 MG in IV 1 EA IV ONE (11:00)
[2023-08-03] MEDS ORDERED: HEPARIN SOD (PORCINE) 5000UNITS/ML 1ML VIAL/SYRINGE IV ONE (14:10)
[2023-08-03] MEDS ORDERED: HEPARIN SOD (PORCINE) 5000UNITS/ML 1ML VIAL/SYRINGE IV PRN (14:10)
[2023-08-03] MEDS: HEPARIN DRIP 25,000 UNITS in IV 1 EA IV SCH (15:01)
[2023-08-04] VITALS (27 sets, daily range): BP systolic 108–162; BP diastolic 59–73; TEMP 97–98.1; O2SAT 91–97
[2023-08-04] MEDS: HEPARIN DRIP 25,000 UNITS in IV 1 EA IV SCH (03:52)
[2023-08-04 04:39] LABS: HEMATOCRIT 40.5 % (42.0-52.0); HEMOGLOBIN 13.8 g/dl (13.5-17.5); MEAN CORPUSCULAR HEMOGLOBIN 32.2 pg (27.0-33.0); MEAN CORPUSCULAR HGB CONC 34.1 g/dl (32.0-36.5); MEAN CORPUSCULAR VOLUME 94.4 fl (80.0-96.0); PLATELET COUNT, AUTOMATED 223 10^3/uL (150-450); RED BLOOD COUNT 4.29 10^6/uL (4.30-6.10); WHITE BLOOD COUNT 26.4 10^3/uL (4.0-10.0)
[2023-08-04] MEDS: LEVOTHYROXINE 100MCG TABLET (0.1MG) PO SCH (05:01)
[2023-08-04] MEDS: LEVOTHYROXINE 75MCG TABLET (0.075MG) PO SCH (05:01)
[2023-08-04 05:03] LABS: BLOOD UREA NITROGEN 17 MG/DL (9-23); CALCIUM LEVEL 7.7 MG/DL (8.5-10.1); CARBON DIOXIDE LEVEL 32 MMOL/L (20-31); CHLORIDE LEVEL 101 MMOL/L (98-107); CREATININE FOR GFR 0.68 MG/DL (0.70-1.30); GLOMERULAR FILTRATION RATE > 60.0 (>56); GLUCOSE, FASTING 107 MG/DL (60-100); MAGNESIUM LEVEL 2.2 MG/DL (1.8-2.4); POTASSIUM SERUM 3.5 MMOL/L (3.5-5.1); SODIUM LEVEL 139 MMOL/L (136-145)
[2023-08-04 05:14] LABS: ATYPICAL LYMPH 2 % (0-5); EOSINOPHILS 1 % (0-3); LYMPHOCYTES 10 % (16-44); METAMYELOCYTES 2 % (0-0); MONOCYTES 13 % (0-5); NEUTROPHILS 69 % (28-66); PLATELET ESTIMATE NORMAL (NORMAL)
[2023-08-04 05:15] LABS: ANISOCYTOSIS 1+; POLYCHROMASIA 1+
[2023-08-04] MEDS: AMPICILLIN SOD/SULBACTAM SOD 3 GM in D5W MINI-BAG PLUS 100 ML IV SCH ×4 (05:32→23:59)
[2023-08-04] MEDS: IPRATROPIUM 0.5MG/ALBUTEROL 2.5MG INH SOL UD 3ML (DUONEB) NEB SCH ×4 (07:51→20:13)
[2023-08-04] MEDS: FUROSEMIDE 40MG/4ML VIAL IV SCH (08:44)
[2023-08-04] MEDS: MICONAZOLE 2 % POWDER (DESENEX) TOP SCH ×2 (08:45→21:18)
[2023-08-04] MEDS: OXYMETAZOLINE 0.05% NASAL SPRAY (AFRIN) SCH (08:45)
[2023-08-04] MEDS: VENLAFAXINE 37.5 MG TAB FT SCH ×2 (09:00→19:58)
[2023-08-04] MEDS: SPIRONOLACTONE 25 MG TAB PO SCH (09:00)
[2023-08-04] MEDS ORDERED: DEXTROSE 50% 50ML SYRINGE IV PRN (09:15)
[2023-08-04] MEDS ORDERED: GLUCAGON INJ 1MG VIAL SC PRN (09:15)
[2023-08-04] MEDS ORDERED: GLUCOSE 4GM CHEW TABLET PO PRN (09:15)
[2023-08-04] MEDS ORDERED: INSULIN LISPRO (NovoLOG) PER UNIT SC SCH ×2 (12:00→21:00)
[2023-08-04] MEDS ORDERED: SODIUM CHLORIDE HYPERTONIC 3% 4ML NEB SOL INH ONE (12:00)
[2023-08-04] MEDS: INSULIN LISPRO (NovoLOG) PER UNIT SC SCH ×2 (12:00→18:00)
[2023-08-04] MEDS: PANTOPRAZOLE 40MG VIAL IV SCH (13:01)
[2023-08-04] MEDS: ENOXAPARIN 150MG/ML SYRINGE SC SCH ×2 (13:01→23:58)
[2023-08-04] MEDS ORDERED: PROHANCE 279.3MG/ML 15ML VIAL As Ordered ONE (18:37)
[2023-08-04] MEDS ORDERED: PROHANCE 279.3MG/ML 5ML VIAL As Ordered ONE (18:37)
[2023-08-05] VITALS (30 sets, daily range): BP systolic 127–146; BP diastolic 64–82; TEMP 96.6–99.6; O2SAT 86–98
[2023-08-05 05:13] LABS: BASO # 0.1 10^3/uL (0.0-0.2); BASO % 0.6 % (0.0-1.0); EOS # 0.4 10^3/uL (0.0-0.5); EOS % 2.2 % (0.0-3.0); HEMATOCRIT 40.7 % (42.0-52.0); HEMOGLOBIN 13.7 g/dl (13.5-17.5); LYMPH # 2.6 10^3/uL (1.5-5.0); LYMPH % 13.4 % (24.0-44.0); MEAN CORPUSCULAR HEMOGLOBIN 32.2 pg (27.0-33.0); MEAN CORPUSCULAR HGB CONC 33.7 g/dl (32.0-36.5); MEAN CORPUSCULAR VOLUME 95.8 fl (80.0-96.0); MONO # 1.5 10^3/uL (0.0-0.8); MONO % 7.6 % (2.0-8.0); NEUTROPHILS # 14.5 10^3/uL (1.5-8.5); NEUTROPHILS % 73.3 % (36.0-66.0); PLATELET COUNT, AUTOMATED 253 10^3/uL (150-450); RED BLOOD COUNT 4.25 10^6/uL (4.30-6.10); WHITE BLOOD COUNT 19.7 10^3/uL (4.0-10.0)
[2023-08-05] MEDS: LEVOTHYROXINE 75MCG TABLET (0.075MG) PO SCH (05:27)
[2023-08-05] MEDS: LEVOTHYROXINE 100MCG TABLET (0.1MG) PO SCH (05:27)
[2023-08-05 05:36] LABS: ALBUMIN 1.8 G/DL (3.2-5.2); ALKALINE PHOSPHATASE 78 U/L (46-116); ALT/SGPT 26 U/L (7.0-40); AST/SGOT 29 U/L (<34); BILIRUBIN,TOTAL 0.8 MG/DL (0.3-1.2); BLOOD UREA NITROGEN 19 MG/DL (9-23); CALCIUM LEVEL 7.7 MG/DL (8.5-10.1); CARBON DIOXIDE LEVEL 31 MMOL/L (20-31); CHLORIDE LEVEL 101 MMOL/L (98-107); CREATININE FOR GFR 0.69 MG/DL (0.70-1.30); GLOMERULAR FILTRATION RATE > 60.0 (>56); GLUCOSE, FASTING 98 MG/DL (60-100); MAGNESIUM LEVEL 2.4 MG/DL (1.8-2.4); POTASSIUM SERUM 3.3 MMOL/L (3.5-5.1); SODIUM LEVEL 140 MMOL/L (136-145); TOTAL PROTEIN 7.5 G/DL (5.7-8.2)
[2023-08-05] MEDS: AMPICILLIN SOD/SULBACTAM SOD 3 GM in D5W MINI-BAG PLUS 100 ML IV SCH ×4 (05:41→23:17)
[2023-08-05] MEDS: INSULIN LISPRO (NovoLOG) PER UNIT SC SCH ×4 (05:42→18:00)
[2023-08-05] MEDS: KCL 10MEQ/100ML SWI (KRUN) 10 MEQ in IV 1 EA IV SCH ×2 (06:22→07:32)
[2023-08-05] MEDS: IPRATROPIUM 0.5MG/ALBUTEROL 2.5MG INH SOL UD 3ML (DUONEB) NEB SCH ×4 (07:06→20:07)
[2023-08-05] MEDS ORDERED: ATORVASTATIN 20 MG TAB PO SCH (09:00)
[2023-08-05] MEDS ORDERED: LEVOTHYROXINE 100MCG (0.1MG) 5ML SDV PF (SOLUTION FORM) IV SCH (09:00)
[2023-08-05] MEDS: SPIRONOLACTONE 25 MG TAB PO SCH (09:00)
[2023-08-05] MEDS: VENLAFAXINE 37.5 MG TAB FT SCH (09:00)
[2023-08-05] MEDS: FUROSEMIDE 40MG/4ML VIAL IV SCH (09:02)
[2023-08-05] MEDS: PANTOPRAZOLE 40MG VIAL IV SCH (09:02)
[2023-08-05] MEDS: MICONAZOLE 2 % POWDER (DESENEX) TOP SCH ×2 (09:02→20:54)
[2023-08-05] MEDS: ENOXAPARIN 150MG/ML SYRINGE SC SCH ×2 (11:48→23:17)
[2023-08-06] VITALS (35 sets, daily range): BP systolic 117–137; BP diastolic 62–82; TEMP 96.8–98.3; O2SAT 84–97
[2023-08-06] MEDS: INSULIN LISPRO (NovoLOG) PER UNIT SC SCH ×5 (06:00→23:53)
[2023-08-06] MEDS ORDERED: LEVOTHYROXINE 150MCG TABLET (0.15MG) PO SCH (06:00)
[2023-08-06] MEDS: AMPICILLIN SOD/SULBACTAM SOD 3 GM in D5W MINI-BAG PLUS 100 ML IV SCH ×3 (06:50→17:48)
[2023-08-06 07:28] LABS: ABG BASE EXCESS 3.2 (-2.0-2.0); ABG HCO3 26.7 MMOL/L (22.0-26.0); ABG O2 SATURATION 97.9 % (95.0-99.0); ABG PARTIAL PRESSURE CO2 37.4 mmHg (35.0-45.0); ABG PARTIAL PRESSURE O2 110.4 mmHg (75.0-100.0); ABG STANDARD HCO3 27.3 MMOL/L. (22.0-26.0); ABG TOTAL CO2 27.9 MMOL/L (22.0-29.0); ABG pH (ARTERIAL) 7.472 UNITS (7.350-7.450)
[2023-08-06] MEDS: IPRATROPIUM 0.5MG/ALBUTEROL 2.5MG INH SOL UD 3ML (DUONEB) NEB SCH ×4 (07:32→19:00)
[2023-08-06 07:59] LABS: BASO # 0.1 10^3/uL (0.0-0.2); BASO % 0.7 % (0.0-1.0); EOS # 0.4 10^3/uL (0.0-0.5); EOS % 2.5 % (0.0-3.0); HEMATOCRIT 41.2 % (42.0-52.0); HEMOGLOBIN 13.8 g/dl (13.5-17.5); LYMPH # 2.9 10^3/uL (1.5-5.0); LYMPH % 17.7 % (24.0-44.0); MEAN CORPUSCULAR HEMOGLOBIN 31.8 pg (27.0-33.0); MEAN CORPUSCULAR HGB CONC 33.5 g/dl (32.0-36.5); MEAN CORPUSCULAR VOLUME 94.9 fl (80.0-96.0); MONO # 1.3 10^3/uL (0.0-0.8); MONO % 7.7 % (2.0-8.0); NEUTROPHILS # 11.4 10^3/uL (1.5-8.5); NEUTROPHILS % 70.2 % (36.0-66.0); PLATELET COUNT, AUTOMATED 282 10^3/uL (150-450); RED BLOOD COUNT 4.34 10^6/uL (4.30-6.10); WHITE BLOOD COUNT 16.2 10^3/uL (4.0-10.0)
[2023-08-06 08:23] LABS: BLOOD UREA NITROGEN 23 MG/DL (9-23); CALCIUM LEVEL 7.6 MG/DL (8.5-10.1); CARBON DIOXIDE LEVEL 29 MMOL/L (20-31); CHLORIDE LEVEL 102 MMOL/L (98-107); GLOMERULAR FILTRATION RATE > 60.0 (>56); GLUCOSE, FASTING 95 MG/DL (60-100); POTASSIUM SERUM 3.2 MMOL/L (3.5-5.1); SODIUM LEVEL 140 MMOL/L (136-145)
[2023-08-06] MEDS: LEVOTHYROXINE 100MCG (0.1MG) 5ML SDV PF (SOLUTION FORM) IV SCH (08:57)
[2023-08-06] MEDS: MICONAZOLE 2 % POWDER (DESENEX) TOP SCH ×2 (08:57→20:56)
[2023-08-06] MEDS ORDERED: FUROSEMIDE 40 MG TAB PO SCH (09:00)
[2023-08-06] MEDS: KCL 10MEQ/100ML SWI (KRUN) 10 MEQ in IV 1 EA IV SCH ×2 (11:32→14:17)
[2023-08-06] MEDS: ENOXAPARIN 150MG/ML SYRINGE SC SCH (11:32)
[2023-08-06] MEDS ORDERED: OMEPRAZOLE 20MG CAP PO SCH (21:00)
[2023-08-07] VITALS (19 sets, daily range): BP systolic 125–139; BP diastolic 66–79; TEMP 96.1–97.4; O2SAT 91–100
[2023-08-07] MEDS: ENOXAPARIN 150MG/ML SYRINGE SC SCH ×3 (00:16→22:23)
[2023-08-07] MEDS: AMPICILLIN SOD/SULBACTAM SOD 3 GM in D5W MINI-BAG PLUS 100 ML IV SCH ×5 (00:42→23:12)
[2023-08-07] MEDS: INSULIN LISPRO (NovoLOG) PER UNIT SC SCH ×4 (06:00→23:41)
[2023-08-07 06:25] LABS: BASO # 0.1 10^3/uL (0.0-0.2); BASO % 0.7 % (0.0-1.0); EOS # 0.4 10^3/uL (0.0-0.5); EOS % 2.9 % (0.0-3.0); HEMOGLOBIN 13.4 g/dl (13.5-17.5); LYMPH # 2.9 10^3/uL (1.5-5.0); LYMPH % 19.5 % (24.0-44.0); MEAN CORPUSCULAR HEMOGLOBIN 32.4 pg (27.0-33.0); MEAN CORPUSCULAR HGB CONC 33.5 g/dl (32.0-36.5); MEAN CORPUSCULAR VOLUME 96.6 fl (80.0-96.0); MONO % 6.8 % (2.0-8.0); NEUTROPHILS # 10.3 10^3/uL (1.5-8.5); PLATELET COUNT, AUTOMATED 303 10^3/uL (150-450); RED BLOOD COUNT 4.14 10^6/uL (4.30-6.10); WHITE BLOOD COUNT 14.9 10^3/uL (4.0-10.0)
[2023-08-07 06:55] LABS: BLOOD UREA NITROGEN 20 MG/DL (9-23); CALCIUM LEVEL 7.5 MG/DL (8.5-10.1); CARBON DIOXIDE LEVEL 32 MMOL/L (20-31); CHLORIDE LEVEL 103 MMOL/L (98-107); GLOMERULAR FILTRATION RATE > 60.0 (>56); GLUCOSE, FASTING 80 MG/DL (60-100); POTASSIUM SERUM 3.5 MMOL/L (3.5-5.1); SODIUM LEVEL 143 MMOL/L (136-145)
[2023-08-07] MEDS: IPRATROPIUM 0.5MG/ALBUTEROL 2.5MG INH SOL UD 3ML (DUONEB) NEB SCH ×4 (07:53→19:57)
[2023-08-07] MEDS ORDERED: ISOVUE-370 76% 100ML VIAL As Ordered ONE (08:04)
[2023-08-07] MEDS: MICONAZOLE 2 % POWDER (DESENEX) TOP SCH ×2 (10:33→22:18)
[2023-08-07 12:03] LABS: LDH LACTATE DEHYDROGENASE 309 U/L (120-246)
[2023-08-07] MEDS: LEVOTHYROXINE 100MCG (0.1MG) 5ML SDV PF (SOLUTION FORM) IV SCH (12:22)
[2023-08-07] MEDS: LR 1,000 ML IV SCH ×2 (12:24→22:18)
[2023-08-07] MEDS: D5W/0.45% SODIUM CHLORIDE 1,000 ML IV SCH (23:42)
[2023-08-08] VITALS (23 sets, daily range): BP systolic 126–142; BP diastolic 63–80; TEMP 97–97.6; O2SAT 90–100
[2023-08-08] MEDS: AMPICILLIN SOD/SULBACTAM SOD 3 GM in D5W MINI-BAG PLUS 100 ML IV SCH (05:24)
[2023-08-08] MEDS: INSULIN LISPRO (NovoLOG) PER UNIT SC SCH ×2 (05:34→12:00)
[2023-08-08 07:11] LABS: BASO # 0.1 10^3/uL (0.0-0.2); BASO % 0.9 % (0.0-1.0); EOS # 0.5 10^3/uL (0.0-0.5); EOS % 4.4 % (0.0-3.0); HEMATOCRIT 41.1 % (42.0-52.0); HEMOGLOBIN 13.7 g/dl (13.5-17.5); LYMPH # 2.3 10^3/uL (1.5-5.0); LYMPH % 20.1 % (24.0-44.0); MEAN CORPUSCULAR HGB CONC 33.3 g/dl (32.0-36.5); MONO # 0.9 10^3/uL (0.0-0.8); MONO % 8.2 % (2.0-8.0); NEUTROPHILS # 7.3 10^3/uL (1.5-8.5); NEUTROPHILS % 65.7 % (36.0-66.0); PLATELET COUNT, AUTOMATED 285 10^3/uL (150-450); RED BLOOD COUNT 4.28 10^6/uL (4.30-6.10); WHITE BLOOD COUNT 11.2 10^3/uL (4.0-10.0)
[2023-08-08] MEDS: IPRATROPIUM 0.5MG/ALBUTEROL 2.5MG INH SOL UD 3ML (DUONEB) NEB SCH ×5 (07:25→19:01)
[2023-08-08 07:39] LABS: BLOOD UREA NITROGEN 16 MG/DL (9-23); CALCIUM LEVEL 7.6 MG/DL (8.5-10.1); CARBON DIOXIDE LEVEL 25 MMOL/L (20-31); CHLORIDE LEVEL 104 MMOL/L (98-107); CREATININE FOR GFR 0.63 MG/DL (0.70-1.30); GLOMERULAR FILTRATION RATE > 60.0 (>56); GLUCOSE, FASTING 89 MG/DL (60-100); POTASSIUM SERUM 3.6 MMOL/L (3.5-5.1); SODIUM LEVEL 140 MMOL/L (136-145)
[2023-08-08] MEDS: LEVOTHYROXINE 100MCG (0.1MG) 5ML SDV PF (SOLUTION FORM) IV SCH (08:51)
[2023-08-08] MEDS: D5W/0.45% SODIUM CHLORIDE 1,000 ML IV SCH (08:51)
[2023-08-08] MEDS: MICONAZOLE 2 % POWDER (DESENEX) TOP SCH ×2 (08:52→21:05)
[2023-08-08] MEDS ORDERED: VARIBAR NECTAR 40% w/v 240ML SUSP BTL As Ordered ONE (10:28)
[2023-08-08] MEDS ORDERED: VARIBAR PUDDING 40% w/v 230ML TUBE As Ordered ONE (10:28)
[2023-08-08] MEDS ORDERED: BARIUM SULFATE 700 MG TABLET (E-Z-DISK) As Ordered ONE (10:28)
[2023-08-08] MEDS ORDERED: E-Z-PAQUE 96% w/w SUSP 176GM BTL As Ordered ONE (10:28)
[2023-08-08] MEDS: ENOXAPARIN 150MG/ML SYRINGE SC SCH ×2 (11:00→22:09)
[2023-08-08 13:30] LABS: PH BODY FLUID 7.523 UNITS (NOT ESTABLISHED); SOURCE, BODY FLUID pH PLEURAL
[2023-08-08 13:37] LABS: SOURCE, BODY FLUID ALBUMIN PLEURAL
[2023-08-08 13:39] LABS: PLEURAL FL COLOR RED (COLORLESS); SOURCE, BODY FLUID PLEURAL
[2023-08-08 13:40] LABS: APPEARANCE, BODY FLUID CLOUDY (CLEAR)
[2023-08-08 13:44] LABS: SOURCE, BODY FLUID TOT PROTEIN PLEURAL; TOTAL PROTEIN, BODY FLUID 5.5 G/DL (NOT ESTABLISHED)
[2023-08-08 13:55] LABS: SOURCE, BODY FLUID GLUCOSE PLEURAL; SOURCE, BODY FLUID TRIG PLEURAL; TRIGLYCERIDE, BODY FLUID 70 MG/DL (NOT ESTABLISHED)
[2023-08-08 13:57] LABS: AMYLASE, BODY FLUID 29 U/L (NOT ESTABLISHED); LDH, BODY FLUID 679 U/L (NOT ESTABLISHED); SOURCE, BODY FLUID AMYLASE PLEURAL; SOURCE, BODY FLUID LDH PLEURAL
[2023-08-08 13:58] LABS: CHOLESTEROL, BODY FLUID 104 MG/DL (NOT ESTABLISHED); SOURCE, BODY FLUID CHOL PLEURAL
[2023-08-08] MEDS: SPIRONOLACTONE 25 MG TAB PO SCH (16:08)
[2023-08-08] MEDS: ASPIRIN 81MG ENTERIC TABLET PO SCH (16:08)
[2023-08-08] MEDS: VENLAFAXINE **XR** 75MG CAPSULE PO SCH (16:08)
[2023-08-08] MEDS: ATORVASTATIN 20 MG TAB PO SCH (16:08)
[2023-08-08] MEDS: FUROSEMIDE 40 MG TAB PO SCH (16:09)
[2023-08-08 16:20] LABS: LDH LACTATE DEHYDROGENASE 382 U/L (120-246)
[2023-08-08 16:21] LABS: ALBUMIN 1.7 G/DL (3.2-5.2); ALKALINE PHOSPHATASE 67 U/L (46-116); ALT/SGPT 36 U/L (7.0-40); AST/SGOT 47 U/L (<34); BILIRUBIN,DIRECT 0.3 MG/DL (<0.4); BILIRUBIN,TOTAL 0.6 MG/DL (0.3-1.2); TOTAL PROTEIN 7.7 G/DL (5.7-8.2)
[2023-08-08] MEDS: SODIUM CHLORIDE 0.9% INJ 10 ML SYR IV SCH (17:54)
[2023-08-08] MEDS ORDERED: SODIUM CHLORIDE 0.9% INJ 10 ML SYR IV PRN (18:00)
[2023-08-08] MEDS: AUGMENTIN 875 MG TAB PO SCH (21:05)
[2023-08-08] MEDS: OMEPRAZOLE 20MG CAP PO SCH (21:05)
[2023-08-09] VITALS (11 sets, daily range): BP systolic 127–142; BP diastolic 63–76; TEMP 96–97.5; O2SAT 85–96
[2023-08-09 05:23] LABS: BASO # 0.1 10^3/uL (0.0-0.2); BASO % 0.9 % (0.0-1.0); EOS # 0.5 10^3/uL (0.0-0.5); EOS % 4.2 % (0.0-3.0); HEMATOCRIT 39.1 % (42.0-52.0); HEMOGLOBIN 13.2 g/dl (13.5-17.5); LYMPH # 2.6 10^3/uL (1.5-5.0); LYMPH % 21.8 % (24.0-44.0); MEAN CORPUSCULAR HGB CONC 33.8 g/dl (32.0-36.5); MEAN CORPUSCULAR VOLUME 94.7 fl (80.0-96.0); MONO # 0.8 10^3/uL (0.0-0.8); MONO % 7.1 % (2.0-8.0); NEUTROPHILS # 7.7 10^3/uL (1.5-8.5); NEUTROPHILS % 65.4 % (36.0-66.0); PLATELET COUNT, AUTOMATED 338 10^3/uL (150-450); RED BLOOD COUNT 4.13 10^6/uL (4.30-6.10); WHITE BLOOD COUNT 11.8 10^3/uL (4.0-10.0)
[2023-08-09 06:06] LABS: BLOOD UREA NITROGEN 16 MG/DL (9-23); CALCIUM LEVEL 7.4 MG/DL (8.5-10.1); CARBON DIOXIDE LEVEL 29 MMOL/L (20-31); CHLORIDE LEVEL 107 MMOL/L (98-107); CREATININE FOR GFR 0.67 MG/DL (0.70-1.30); GLOMERULAR FILTRATION RATE > 60.0 (>56); GLUCOSE, FASTING 94 MG/DL (60-100); POTASSIUM SERUM 3.7 MMOL/L (3.5-5.1); SODIUM LEVEL 143 MMOL/L (136-145)
[2023-08-09] MEDS: LEVOTHYROXINE 150MCG TABLET (0.15MG) PO SCH (06:08)
[2023-08-09] MEDS: SODIUM CHLORIDE 0.9% INJ 10 ML SYR IV SCH ×2 (06:08→18:51)
[2023-08-09] MEDS: IPRATROPIUM 0.5MG/ALBUTEROL 2.5MG INH SOL UD 3ML (DUONEB) NEB SCH ×4 (07:00→18:50)
[2023-08-09 08:17] LABS: INR 1.2; PROTHROMBIN TIME 14.9 SECONDS (12.5-14.5)
[2023-08-09 08:18] LABS: PARTIAL THROMBOPLASTIN TIME 32.5 SECONDS (24.8-34.2)
[2023-08-09] MEDS: METAMUCIL (PSYLLIUM) PACKET PO SCH ×2 (09:00→19:52)
[2023-08-09] MEDS: MIRALAX *UNIT DOSE* 17GM PACKET PO SCH ×2 (11:23→19:52)
[2023-08-09] MEDS: VENLAFAXINE **XR** 75MG CAPSULE PO SCH (11:24)
[2023-08-09] MEDS: APIXABAN 5 MG TAB (ELIQUIS) PO SCH ×2 (11:24→19:52)
[2023-08-09] MEDS: SPIRONOLACTONE 25 MG TAB PO SCH (11:24)
[2023-08-09] MEDS: ASPIRIN 81MG ENTERIC TABLET PO SCH (11:24)
[2023-08-09] MEDS: FUROSEMIDE 40 MG TAB PO SCH (11:25)
[2023-08-09] MEDS: ATORVASTATIN 20 MG TAB PO SCH (11:25)
[2023-08-09] MEDS: MICONAZOLE 2 % POWDER (DESENEX) TOP SCH ×2 (11:26→19:53)
[2023-08-09] MEDS: AUGMENTIN 875 MG TAB PO SCH ×2 (11:28→19:52)
[2023-08-09] MEDS: OMEPRAZOLE 20MG CAP PO SCH (19:53)
[2023-08-10 03:45] VITALS: BP 159/95; TEMP 96.1; O2SAT 92
[2023-08-10] MEDS: SODIUM CHLORIDE 0.9% INJ 10 ML SYR IV SCH ×2 (05:39→17:38)
[2023-08-10] MEDS: LEVOTHYROXINE 150MCG TABLET (0.15MG) PO SCH (05:40)
[2023-08-10 06:09] LABS: BASO # 0.1 10^3/uL (0.0-0.2); BASO % 1.1 % (0.0-1.0); EOS # 0.5 10^3/uL (0.0-0.5); EOS % 4.9 % (0.0-3.0); HEMATOCRIT 40.5 % (42.0-52.0); HEMOGLOBIN 13.4 g/dl (13.5-17.5); LYMPH # 2.1 10^3/uL (1.5-5.0); LYMPH % 22.6 % (24.0-44.0); MEAN CORPUSCULAR HEMOGLOBIN 31.5 pg (27.0-33.0); MEAN CORPUSCULAR HGB CONC 33.1 g/dl (32.0-36.5); MEAN CORPUSCULAR VOLUME 95.3 fl (80.0-96.0); MONO # 0.8 10^3/uL (0.0-0.8); MONO % 8.3 % (2.0-8.0); NEUTROPHILS # 5.8 10^3/uL (1.5-8.5); NEUTROPHILS % 62.7 % (36.0-66.0); PLATELET COUNT, AUTOMATED 348 10^3/uL (150-450); RED BLOOD COUNT 4.25 10^6/uL (4.30-6.10); WHITE BLOOD COUNT 9.2 10^3/uL (4.0-10.0)
[2023-08-10 06:38] LABS: BLOOD UREA NITROGEN 16 MG/DL (9-23); CALCIUM LEVEL 7.7 MG/DL (8.5-10.1); CARBON DIOXIDE LEVEL 27 MMOL/L (20-31); CHLORIDE LEVEL 104 MMOL/L (98-107); CREATININE FOR GFR 0.67 MG/DL (0.70-1.30); GLOMERULAR FILTRATION RATE > 60.0 (>56); GLUCOSE, FASTING 85 MG/DL (60-100); POTASSIUM SERUM 3.6 MMOL/L (3.5-5.1); SODIUM LEVEL 140 MMOL/L (136-145)
[2023-08-10] MEDS ORDERED: IPRATROPIUM 0.5MG/ALBUTEROL 2.5MG INH SOL UD 3ML (DUONEB) NEB PRN (06:55)
[2023-08-10 07:00] VITALS: O2SAT 92
[2023-08-10 07:38] VITALS: BP 138/84; TEMP 96; O2SAT 94
[2023-08-10] MEDS: SPIRONOLACTONE 25 MG TAB PO SCH (08:02)
[2023-08-10] MEDS: FUROSEMIDE 40 MG TAB PO SCH (08:02)
[2023-08-10] MEDS: BISACODYL 10MG SUPP PR SCH ×2 (08:02→20:45)
[2023-08-10] MEDS: ATORVASTATIN 20 MG TAB PO SCH (08:03)
[2023-08-10] MEDS: VENLAFAXINE **XR** 75MG CAPSULE PO SCH (08:03)
[2023-08-10] MEDS: METAMUCIL (PSYLLIUM) PACKET PO SCH ×2 (08:03→20:45)
[2023-08-10] MEDS: MIRALAX *UNIT DOSE* 17GM PACKET PO SCH ×2 (08:03→20:45)
[2023-08-10] MEDS: AUGMENTIN 875 MG TAB PO SCH ×2 (08:03→20:46)
[2023-08-10] MEDS: ASPIRIN 81MG ENTERIC TABLET PO SCH (08:03)
[2023-08-10] MEDS: APIXABAN 5 MG TAB (ELIQUIS) PO SCH ×2 (08:03→20:46)
[2023-08-10] MEDS: MICONAZOLE 2 % POWDER (DESENEX) TOP SCH ×2 (08:04→20:46)
[2023-08-10 16:03] VITALS: BP 113/69; TEMP 96.2; O2SAT 91
[2023-08-10 19:14] VITALS: BP 128/72; TEMP 96.9; O2SAT 96
[2023-08-10] MEDS: OMEPRAZOLE 20MG CAP PO SCH (20:45)
[2023-08-11 03:26] VITALS: BP 135/83; TEMP 96.8; O2SAT 95
[2023-08-11] MEDS: SODIUM CHLORIDE 0.9% INJ 10 ML SYR IV SCH ×2 (05:11→18:16)
[2023-08-11] MEDS: LEVOTHYROXINE 150MCG TABLET (0.15MG) PO SCH (05:12)
[2023-08-11 06:18] LABS: BASO # 0.1 10^3/uL (0.0-0.2); BASO % 1.1 % (0.0-1.0); EOS # 0.6 10^3/uL (0.0-0.5); HEMATOCRIT 39.2 % (42.0-52.0); HEMOGLOBIN 13.1 g/dl (13.5-17.5); LYMPH # 1.9 10^3/uL (1.5-5.0); MEAN CORPUSCULAR HEMOGLOBIN 31.6 pg (27.0-33.0); MEAN CORPUSCULAR HGB CONC 33.4 g/dl (32.0-36.5); MEAN CORPUSCULAR VOLUME 94.5 fl (80.0-96.0); MONO # 0.8 10^3/uL (0.0-0.8); MONO % 8.3 % (2.0-8.0); PLATELET COUNT, AUTOMATED 376 10^3/uL (150-450); RED BLOOD COUNT 4.15 10^6/uL (4.30-6.10); WHITE BLOOD COUNT 9.4 10^3/uL (4.0-10.0)
[2023-08-11 07:33] VITALS: BP 100/59; TEMP 96.7; O2SAT 92
[2023-08-11] MEDS: METAMUCIL (PSYLLIUM) PACKET PO SCH ×2 (09:00→20:15)
[2023-08-11] MEDS ORDERED: APIXABAN 5 MG TAB (ELIQUIS) PO SCH (09:00)
[2023-08-11] MEDS: MIRALAX *UNIT DOSE* 17GM PACKET PO SCH ×2 (09:00→20:15)
[2023-08-11] MEDS: BISACODYL 10MG SUPP PR SCH ×2 (09:00→20:15)
[2023-08-11] MEDS: ASPIRIN 81MG ENTERIC TABLET PO SCH (09:11)
[2023-08-11] MEDS: FUROSEMIDE 40 MG TAB PO SCH (09:11)
[2023-08-11] MEDS: AUGMENTIN 875 MG TAB PO SCH (09:11)
[2023-08-11] MEDS: SPIRONOLACTONE 25 MG TAB PO SCH (09:12)
[2023-08-11] MEDS: VENLAFAXINE **XR** 75MG CAPSULE PO SCH (09:12)
[2023-08-11] MEDS: ATORVASTATIN 20 MG TAB PO SCH (09:12)
[2023-08-11] MEDS: MICONAZOLE 2 % POWDER (DESENEX) TOP SCH ×2 (09:13→20:36)
[2023-08-11 11:29] LABS: INR 1.28; PROTHROMBIN TIME 15.7 SECONDS (12.5-14.5)
[2023-08-11 11:30] LABS: PARTIAL THROMBOPLASTIN TIME 30.1 SECONDS (24.8-34.2)
[2023-08-11 15:47] LABS: BLOOD UREA NITROGEN 16 MG/DL (7-21); CARBON DIOXIDE LEVEL 25 MEQ/L (22-30); CHLORIDE LEVEL 103 MEQ/L (98-107); CREATININE FOR GFR 0.7 MG/DL (0.7-1.5); GLOMERULAR FILTRATION RATE > 60.0 (>56); GLUCOSE, FASTING 88 MG/DL (70-99); POTASSIUM SERUM 3.1 MEQ/L (3.6-5.0); SODIUM LEVEL 141 MEQ/L (134-153)
[2023-08-11 15:48] LABS: CALCIUM LEVEL 8.2 MG/DL (8.4-10.2)
[2023-08-11 15:55] VITALS: BP 136/82; TEMP 96.5; O2SAT 93
[2023-08-11] MEDS: POTASSIUM CHLORIDE 10MEQ SR TABLET PO SCH ×2 (18:16→20:26)
[2023-08-11 19:13] VITALS: BP 125/69; TEMP 96.9; O2SAT 92
[2023-08-11] MEDS: OMEPRAZOLE 20MG CAP PO SCH (20:35)
[2023-08-11] MEDS: KCL 10MEQ/100ML SWI (KRUN) 10 MEQ in IV 1 EA IV SCH ×2 (20:36→21:47)
[2023-08-12 03:23] VITALS: BP 107/69; TEMP 97.5; O2SAT 95
[2023-08-12 04:50] LABS: BASO # 0.1 10^3/uL (0.0-0.2); BASO % 1.3 % (0.0-1.0); EOS # 0.5 10^3/uL (0.0-0.5); EOS % 5.9 % (0.0-3.0); LYMPH # 2.5 10^3/uL (1.5-5.0); LYMPH % 26.7 % (24.0-44.0); MEAN CORPUSCULAR HEMOGLOBIN 31.8 pg (27.0-33.0); MEAN CORPUSCULAR HGB CONC 34.2 g/dl (32.0-36.5); MEAN CORPUSCULAR VOLUME 92.9 fl (80.0-96.0); MONO # 0.8 10^3/uL (0.0-0.8); MONO % 8.4 % (2.0-8.0); NEUTROPHILS # 5.3 10^3/uL (1.5-8.5); NEUTROPHILS % 57.3 % (36.0-66.0); PLATELET COUNT, AUTOMATED 366 10^3/uL (150-450); RED BLOOD COUNT 4.09 10^6/uL (4.30-6.10); WHITE BLOOD COUNT 9.2 10^3/uL (4.0-10.0)
[2023-08-12] MEDS: SODIUM CHLORIDE 0.9% INJ 10 ML SYR IV SCH (05:37)
[2023-08-12] MEDS: LEVOTHYROXINE 150MCG TABLET (0.15MG) PO SCH (05:37)
[2023-08-12] MEDS: MIRALAX *UNIT DOSE* 17GM PACKET PO SCH ×2 (08:47→20:02)
[2023-08-12] MEDS: APIXABAN 5 MG TAB (ELIQUIS) PO SCH ×2 (08:48→20:02)
[2023-08-12] MEDS: ATORVASTATIN 20 MG TAB PO SCH (08:48)
[2023-08-12] MEDS: ASPIRIN 81MG ENTERIC TABLET PO SCH (08:48)
[2023-08-12] MEDS: POTASSIUM CHLORIDE 10MEQ SR TABLET PO SCH (08:48)
[2023-08-12] MEDS: VENLAFAXINE **XR** 75MG CAPSULE PO SCH ×2 (08:48→09:00)
[2023-08-12] MEDS: BISACODYL 10MG SUPP PR SCH ×2 (08:49→20:02)
[2023-08-12] MEDS: FUROSEMIDE 40 MG TAB PO SCH (08:49)
[2023-08-12] MEDS: METAMUCIL (PSYLLIUM) PACKET PO SCH ×2 (08:49→20:02)
[2023-08-12] MEDS: SPIRONOLACTONE 25 MG TAB PO SCH (08:49)
[2023-08-12 09:00] VITALS: BP 105/72; TEMP 97; O2SAT 95
[2023-08-12] MEDS: MICONAZOLE 2 % POWDER (DESENEX) TOP SCH (09:05)
[2023-08-12] MEDS ORDERED: MICONAZOLE 2 % POWDER (DESENEX) TOP PRN (12:20)
[2023-08-12 13:43] VITALS: BP 117/58; TEMP 96.7; O2SAT 95
[2023-08-12 19:11] VITALS: BP 141/74; TEMP 97; O2SAT 98
[2023-08-12] MEDS: OMEPRAZOLE 20MG CAP PO SCH (20:01)
[2023-08-13 01:15] VITALS: O2SAT 95
[2023-08-13 03:24] VITALS: O2SAT 95
[2023-08-13] MEDS: LEVOTHYROXINE 150MCG TABLET (0.15MG) PO SCH (06:04)
[2023-08-13 07:24] VITALS: BP 120/65; TEMP 96.9; O2SAT 94
[2023-08-13] MEDS: MIRALAX *UNIT DOSE* 17GM PACKET PO SCH ×2 (09:00→20:02)
[2023-08-13] MEDS: BISACODYL 10MG SUPP PR SCH ×2 (09:00→20:01)
[2023-08-13] MEDS: METAMUCIL (PSYLLIUM) PACKET PO SCH ×2 (09:00→20:02)
[2023-08-13] MEDS: FUROSEMIDE 40 MG TAB PO SCH (09:35)
[2023-08-13] MEDS: ASPIRIN 81MG ENTERIC TABLET PO SCH (09:35)
[2023-08-13] MEDS: SPIRONOLACTONE 25 MG TAB PO SCH (09:35)
[2023-08-13] MEDS: ATORVASTATIN 20 MG TAB PO SCH (09:35)
[2023-08-13] MEDS: POTASSIUM CHLORIDE 10MEQ SR TABLET PO SCH (09:35)
[2023-08-13] MEDS: APIXABAN 5 MG TAB (ELIQUIS) PO SCH ×2 (09:35→20:01)
[2023-08-13 14:13] LABS: BLOOD UREA NITROGEN 14 MG/DL (7-21); CREATININE FOR GFR 0.7 MG/DL (0.7-1.5); GLOMERULAR FILTRATION RATE > 60.0 (>56); GLUCOSE, FASTING 73 MG/DL (70-99)
[2023-08-13 14:14] LABS: CALCIUM LEVEL 8.1 MG/DL (8.4-10.2); CARBON DIOXIDE LEVEL 23 MEQ/L (22-30); CHLORIDE LEVEL 103 MEQ/L (98-107); POTASSIUM SERUM 3.5 MEQ/L (3.6-5.0); SODIUM LEVEL 141 MEQ/L (134-153)
[2023-08-13 19:34] VITALS: BP 138/82; TEMP 97.2; O2SAT 95
[2023-08-13] MEDS: OMEPRAZOLE 20MG CAP PO SCH (20:01)
[2023-08-13 23:42] VITALS: O2SAT 95
[2023-08-14 03:20] VITALS: O2SAT 92
[2023-08-14] MEDS: LEVOTHYROXINE 150MCG TABLET (0.15MG) PO SCH (05:31)
[2023-08-14 07:42] VITALS: BP 126/75; TEMP 97.2; O2SAT 96
[2023-08-14] MEDS: ASPIRIN 81MG ENTERIC TABLET PO SCH (08:27)
[2023-08-14] MEDS: POTASSIUM CHLORIDE 10MEQ SR TABLET PO SCH (08:28)
[2023-08-14] MEDS: SPIRONOLACTONE 25 MG TAB PO SCH (08:28)
[2023-08-14] MEDS: APIXABAN 5 MG TAB (ELIQUIS) PO SCH ×2 (08:28→21:26)
[2023-08-14] MEDS: ATORVASTATIN 20 MG TAB PO SCH (08:28)
[2023-08-14] MEDS: FUROSEMIDE 40 MG TAB PO SCH (08:29)
[2023-08-14] MEDS: BISACODYL 10MG SUPP PR SCH ×2 (08:29→21:00)
[2023-08-14] MEDS: MIRALAX *UNIT DOSE* 17GM PACKET PO SCH ×2 (08:29→21:00)
[2023-08-14] MEDS: METAMUCIL (PSYLLIUM) PACKET PO SCH ×2 (08:30→21:00)
[2023-08-14] MEDS: LACTULOSE 20GM/30ML SYRUP UDC PO SCH ×3 (10:41→21:00)
[2023-08-14 20:00] VITALS: BP 112/52; TEMP 96.8; O2SAT 96
[2023-08-14] MEDS: OMEPRAZOLE 20MG CAP PO SCH (21:26)
[2023-08-15] MEDS: LEVOTHYROXINE 150MCG TABLET (0.15MG) PO SCH (06:04)
[2023-08-15 07:29] VITALS: BP 135/78; TEMP 96.7; O2SAT 94
[2023-08-15] MEDS: APIXABAN 5 MG TAB (ELIQUIS) PO SCH (08:18)
[2023-08-15] MEDS: ATORVASTATIN 20 MG TAB PO SCH (08:18)
[2023-08-15] MEDS: ASPIRIN 81MG ENTERIC TABLET PO SCH (08:18)
[2023-08-15] MEDS: FUROSEMIDE 40 MG TAB PO SCH (08:19)
[2023-08-15] MEDS: SPIRONOLACTONE 25 MG TAB PO SCH (08:20)
[2023-08-15] MEDS: POTASSIUM CHLORIDE 10MEQ SR TABLET PO SCH (08:20)
[2023-08-15] MEDS: MIRALAX *UNIT DOSE* 17GM PACKET PO SCH (08:21)
[2023-08-15] MEDS: BISACODYL 10MG SUPP PR SCH (08:21)
[2023-08-15] MEDS: LACTULOSE 20GM/30ML SYRUP UDC PO SCH (08:21)
[2023-08-15] MEDS: METAMUCIL (PSYLLIUM) PACKET PO SCH (08:21)
[2023-08-15 08:33] LABS: BLOOD UREA NITROGEN 10 MG/DL (9-23); CARBON DIOXIDE LEVEL 29 MMOL/L (20-31); CHLORIDE LEVEL 99 MMOL/L (98-107); CREATININE FOR GFR 0.74 MG/DL (0.70-1.30); GLOMERULAR FILTRATION RATE > 60.0 (>56); GLUCOSE, FASTING 82 MG/DL (60-100); POTASSIUM SERUM 3.7 MMOL/L (3.5-5.1); SODIUM LEVEL 135 MMOL/L (136-145)
[2023-08-15] MEDS ORDERED: ELIQ5TAB PO (10:41)
[2023-08-15] MEDS ORDERED: PRED10PA PO (10:45)
== END 2023-08-15 12:55 | disposition home or self-care (01) | DRG 133 ==
LOC: M ED 00:33 → M ED INP 05:48 → M ICU 06:53 → M PCU 08-06 00:46
PROVIDERS: ADMIT Internal Medicine Pulmonary Disease; ATTEND Student in an Organized Health Care Education/Training Program
PROC: 5A1945Z Respiratory Ventilation, 24-96 Consecutive Hours (ICD-10-PCS; 2023-07-26)
PROC: 09BN8ZX Excision of Nasopharynx, Via Natural or Artificial Opening Endoscopic, Diagnostic (ICD-10-PCS; 2023-07-26)
PROC: B246ZZZ Ultrasonography of Right and Left Heart (ICD-10-PCS; 2023-07-28)
PROC: 0B9G8ZX Drainage of Left Upper Lung Lobe, Via Natural or Artificial Opening Endoscopic, Diagnostic (ICD-10-PCS; 2023-07-31)
PROC: 0B9B8ZX Drainage of Left Lower Lobe Bronchus, Via Natural or Artificial Opening Endoscopic, Diagnostic (ICD-10-PCS; 2023-07-31)
PROC: 0W993ZX Drainage of Right Pleural Cavity, Percutaneous Approach, Diagnostic (ICD-10-PCS; principal; 2023-08-08 12:00)
DX: J96.01 Acute respiratory failure with hypoxia (principal); G72.81 Critical illness myopathy; G93.41 Metabolic encephalopathy; J15.9 Unspecified bacterial pneumonia; J12.9 Viral pneumonia, unspecified; J91.8 Pleural effusion in other conditions classified elsewhere; I50.30 Unspecified diastolic (congestive) heart failure; I11.0 Hypertensive heart disease with heart failure; E78.5 Hyperlipidemia, unspecified; I82.B12 Acute embolism and thrombosis of left subclavian vein; E66.2 Morbid (severe) obesity with alveolar hypoventilation; J39.2 Other diseases of pharynx; J98.8 Other specified respiratory disorders; I82.612 Acute embolism and thrombosis of superficial veins of left upper extremity; R13.10 Dysphagia, unspecified; Z68.42 Body mass index [BMI] 45.0-49.9, adult; F32.A Depression, unspecified; E87.6 Hypokalemia; E03.9 Hypothyroidism, unspecified; F17.210 Nicotine dependence, cigarettes, uncomplicated; Z79.82 Long term (current) use of aspirin; Z79.890 Hormone replacement therapy; Z79.899 Other long term (current) drug therapy; Z20.822 Contact with and (suspected) exposure to COVID-19; Z86.73 Personal history of transient ischemic attack (TIA), and cerebral infarction without residual deficits

== ENCOUNTER 2023-09-04 13:57 | Outpatient (RCR) | payer BC ==
[~2023-09-04 13:57] MED LIST: ATOR40TA75 PO; ECOT81TA5 PO; ELIQ5TAB PO; FURO20TA2 PO; FURO40TA2 PO; LEVO150T7 PO; PRED10PA PO; PRIL20TA2 PO; SPIR-10 PO; VENL150C43 PO
== END 2023-09-21 ==
LOC: M ST 13:57
PROVIDERS: ATTEND Family Medicine
DX: R13.10 Dysphagia, unspecified (principal)